=== PATIENT | male | born 1980 | race American Indian/Alaskan Native ===

== ENCOUNTER 2018-07-23 12:58 | Emergency (ER) | payer MEDICAID ==
--- NOTE | 2018-07-23 13:05 | EDPHY ---
H & P Time Seen by Provider: 07/23/18 13:03 HPI/ROS: CHIEF COMPLAINT: Suspected alcohol abuse HISTORY OF PRESENT ILLNESS: 38 year old male arrives via ambulance for suspected alcohol abuse, found sleeping in the bushes with a case of empty beer cans at his side. Patient unable to ambulate without assistance. No reports of trauma or assault. No fall from height. No structures of height near patient. He has no complaints of pain or discomfort. There are no visible signs of trauma per EMS. Serum glucose was 120 REVIEW OF SYSTEMS: 10 systems reviewed and negative with the exception of the elements mentioned in the history of present illness PAST MEDICAL/SURGICAL HISTORY: no anticoagulant use, no relevant medical/ surgical history SOCIAL HISTORY: Positive for witnessed and self disclosed alcohol use PHYSICAL EXAM 1) GENERAL: poorly kept, dirty, foul-smelling Appears to be in no acute distress. Answering questions appropriately.Smells of alcohol. 2) HEAD: Normocephalic, atraumatic 3) HEENT: Pupils equal, round, reactive to light bilaterally. Negative Horners. Nasopharynx, oropharynx, clear. No deformity or angulation of nose. No septal hematoma. No rhinorrhea. No oral trauma. Ears bilaterally with normal tympanic membranes. No hemotympanum. No fluid or blood in the external auditory canal. No raccoon eyes. No Craig sign. Teeth are normally aligned with no gross malocclusion, TMJ bilaterally nontender, facial bones nontender including the zygomatic arch, maxilla mandible. 4) NECK: No cervical collar is on. Posterior cervical spine is nontender, no stepoff, no effusion. Full range of motion which does not elicit any midline cervical spine pain, no posterior midline tenderness, no step-off. 5) LUNGS: Clear to auscultation bilaterally, no wheezes, no rhonchi, no retractions. No obvious signs of trauma. No chest wall pain. No flaring, no grunting. Moving symmetrically. No crepitus. 6) HEART: [Regular rate and rhythm, 7) ABDOMEN: No guarding, no rebound, no focal tenderness, no peritoneal signs, no signs of trauma, no ecchymosis 8) MUSCULOSKELETAL: Moving all extremities, no focal areas of tenderness, no obvious trauma. 9) BACK: No midline vertebral tenderness, no fluctuance, no step-off, no obvious trauma, no visual or palpable abnormality. 10) SKIN: No laceration. No abrasion DIFFERENTIAL DIAGNOSIS: In no particular orderincluding but not limited to hypoglycemia, infectious process, electrolyte abnormality, head injury and intoxicants. Constitutional: Initial Vital Signs Temperature (C) 36.8 C 07/23/18 13:15 Heart Rate 102 H 07/23/18 13:15 Respiratory Rate 16 07/23/18 13:15 Blood Pressure 119/91 H 07/23/18 13:15 O2 Sat (%) 94 07/23/18 13:15 O2 Delivery Mode Room Air Allergies/Adverse Reactions: No Known Allergies Allergy (Verified 07/23/18 13:19) Medical Decision Making ED Course/Re-evaluation: 1:41 p.m.: At this time the patient observed ambulating stable steady gait, clear speech pattern, awake alert oriented person place time events. [facility] Care of patient under supervision of primary Supervising physician Dr Acosta . 148 pm: Patient was on an ARC hold. INformed by nursing staff at this time that the patient had run out of the emergency department - Data Points Laboratory Results: 07/23/18 13:10 Ethyl Alcohol 465 mg/dL H* mg/dL (0-10) Departure - Departure Disposition: Home, Routine, Self-Care Clinical Impression: Alcohol abuse Condition: Good Instructions: Chlordiazepoxide (By mouth), Abuse of Alcohol (ED) Additional Instructions: Please consider long-term sobriety from alcohol Referrals: [facility],. [Clinic] - 1-2 days without fail
[2018-07-23] MEDS ORDERED: CHLORDIAZEPOXIDE 25MG PREPK#6 BTL TAKEHOME ONE (13:11)
[2018-07-23 14:19] VITALS: BP 115/80
== END 2018-07-23 14:21 | disposition home or self-care (01) ==
DX: F10.129 Alcohol abuse with intoxication, unspecified (principal)
CPT/HCPCS: G0480